=== PATIENT | male | born 1930 | race Caucasian/White ===

== ENCOUNTER 2018-01-31 08:30 | Outpatient (CLI) | payer MEDICARE ==
[~2018-01-31 08:30] MED LIST: ALD25T PO; FURO-149 PO; GLIM4TAB79 PO; LANTUS SQ; POTA99TA15 PO
== END 2018-01-31 23:59 | disposition home or self-care (01) ==
LOC: DIABETIC 08:30
PROVIDERS: ATTEND Family Medicine
DX: E11.65 Type 2 diabetes mellitus with hyperglycemia (principal); I11.0 Hypertensive heart disease with heart failure; I50.9 Heart failure, unspecified; Z79.4 Long term (current) use of insulin; Z96.651 Presence of right artificial knee joint
CPT/HCPCS: G0108